=== PATIENT | male | born 2000 | race Caucasian/White ===

== ENCOUNTER → 2020-08-03 | Outpatient (CLI) | payer OTHER ==
[2020-08-05 17:13] LABS: CORONAVIRUS (COVID19) CSH-NRL Positive (Negative)
== END | disposition home or self-care (01) ==
LOC: LAB SHORT 17:27 → LAB EV 17:27
PROVIDERS: Physician Assistant
DX: J20.9 Acute bronchitis, unspecified (principal); Z20.828 Contact with and (suspected) exposure to other viral communicable diseases
CPT/HCPCS: U0003

== ENCOUNTER 2020-12-24 23:42 | Emergency (ER) | payer OTHER ==
[~2020-12-24] VITALS: Ht 177.8 cm; Wt 68.0 kg
[2020-12-25 00:09] LABS: Source, Urine Voided
[2020-12-25 00:13] LABS: Bilirubin, Urine Neg (Neg); Blood, Urine Neg (Neg); Glucose Qualitative, Urine Neg (Neg); Ketones, Urine Neg (Neg); Leukocyte Esterase, Urine 1+ (Neg); Nitrite, Urine Neg (Neg); Protein, Urine Neg (Neg); Urobilinogen, Urine NORM (Normal)
[2020-12-25 00:18] LABS: Appearance, Urine Clear (Clear); Color, Urine Yellow (P-Yellow)
[2020-12-25 00:20] LABS: Bacteria Not Seen /hpf; Red Blood Cells, Urine Not Seen /hpf (0-2); Squamous Epithelial Cells Not Seen /hpf (Few); White Blood Cells, Urine Rare /hpf (0-5)
[2020-12-25 00:35] LABS: BASOPHILS ABSOLUTE AUTO 0.04 K/mm3 (0.00-0.23); BASOPHILS PERCENT AUTO 0 % (0-2); EOSINOPHILS ABSOLUTE AUTO 0.07 K/mm3 (0.00-0.68); EOSINOPHILS PERCENT AUTO 1 % (0-6); Hematocrit 45.3 % (37.0-53.0); Hemoglobin 15.5 g/dL (13.5-17.5); IMMATURE GRAN ABSOLUTE AUTO 0.03 K/mm3 (0.00-0.10); IMMATURE GRAN PERCENT AUTO 0 % (0-1); LYMPHOCYTES ABSOLUTE AUTO 2.14 K/mm3 (0.84-5.20); LYMPHOCYTES PERCENT AUTO 22 % (21-46); MONOCYTES ABSOLUTE AUTO 0.62 K/mm3 (0.16-1.47); MONOCYTES PERCENT AUTO 6 % (4-13); Mean Corpuscular HGB 31.2 pg (26.0-34.0); Mean Corpuscular HGB Conc 34.2 g/dL (31.5-36.5); Mean Corpuscular Volume 91 fL (80-100); Mean Platelet Volume 10.1 fL (9.1-12.4); NEUTROPHILS ABSOLUTE AUTO 7.06 K/mm3 (1.96-9.15); NEUTROPHILS PERCENT AUTO 71 % (41-73); Platelet Count 166 K/mm3 (150-400); RDW Coefficient Variation 12.3 % (11.7-14.2); Red Blood Cell Count 4.97 M/mm3 (4.30-5.90); White Blood Cell Count 9.96 K/mm3 (4.00-11.30)
[2020-12-25 01:12] LABS: Alanine Aminotransfer (ALT/SGP 27 U/L (12-78); Albumin/Globulin Ratio 1.2 (0.8-1.8); Alk Phos 78 U/L (50-136); Anion Gap 5 mmol/L (6-16); Aspartate Aminotrans (AST/SGOT 26 U/L (12-37); Bilirubin, Total 0.5 mg/dL (0.1-1.0); Blood Urea Nitrogen 14 mg/dL (8-24); Bun/Creatinine Ratio 14.1 (12.0-20.0); CO2, Blood 29 mmol/L (21-32); CPK Creatine Kinase 116 U/L (39-308); Calcium, Blood 8.9 mg/dL (8.5-10.1); Chloride, Blood 104 mmol/L (98-108); Creatinine, Blood 0.99 mg/dL (0.60-1.20); Ethanol (Alcohol), Blood, Med <3 mg/dL; Globulin, Blood 3.3 g/dL (2.2-4.0); Glomerular Filtration Rate >60 (60-); Glucose, Blood 100 mg/dL (70-99); Potassium, Blood 3.8 mmol/L (3.5-5.5); Sodium, Blood 138 mmol/L (136-145); Total Protein, Blood 7.3 g/dL (6.4-8.2)
[2020-12-25 01:13] LABS: Creatine Kinase MB <1.0 ng/mL (0.0-3.6); Creatine Kinase MB Index Unable to Calculate (0.0-4.0)
[2020-12-25] MEDS ORDERED: IBU600 MG PO (01:23)
== END 2020-12-25 01:30 | disposition home or self-care (01) ==
LOC: ER 23:42
PROVIDERS: Emergency Medicine
DX: R10.9 Unspecified abdominal pain (principal); Z72.89 Other problems related to lifestyle
CPT/HCPCS: 36415; 80053; 81001; 82550; 82553; 85025; 96372; 99284-25; G0480; J1885

== ENCOUNTER 2021-05-10 22:19 | Emergency (ER) | payer OTHER ==
[~2021-05-10] VITALS: Ht 175.3 cm; Wt 68.0 kg
[~2021-05-10 22:19] MED LIST: IBU600 MG PO
== END 2021-05-11 05:16 | disposition home or self-care (01) ==
LOC: ER 22:19
DX: S90.01XA Contusion of right ankle, initial encounter (principal); Z87.891 Personal history of nicotine dependence; V48.4XXA Person boarding or alighting a car injured in noncollision transport accident, initial encounter; Y99.0 Civilian activity done for income or pay
CPT/HCPCS: 73610; 99283-25; A9270

== ENCOUNTER 2021-06-25 10:39 | Emergency (ER) | payer OTHER ==
[~2021-06-25] VITALS: Ht 175.3 cm; Wt 65.8 kg
[2021-06-25] MEDS ORDERED: HYDR1TAB94 PO (11:38)
== END 2021-06-25 11:45 | disposition home or self-care (01) ==
LOC: ER 10:39
DX: S62.314A Displaced fracture of base of fourth metacarpal bone, right hand, initial encounter for closed fracture (principal); Z87.891 Personal history of nicotine dependence; W19.XXXA Unspecified fall, initial encounter
CPT/HCPCS: 29125; 73130; 99283-25; A9270

== ENCOUNTER → 2021-12-16 | Outpatient (CLI) | payer OTHER ==
[~2021-12-16] MED LIST changes: +HYDR1TAB94 PO
[2021-12-16 11:29] LABS: BASOPHILS ABSOLUTE AUTO 0.07 K/mm3 (0.00-0.23); BASOPHILS PERCENT AUTO 0 % (0-2); EOSINOPHILS ABSOLUTE AUTO 0.04 K/mm3 (0.00-0.68); EOSINOPHILS PERCENT AUTO 0 % (0-6); Hematocrit 44.2 % (37.0-53.0); Hemoglobin 15.3 g/dL (13.5-17.5); IMMATURE GRAN ABSOLUTE AUTO 0.18 K/mm3 (0.00-0.10); IMMATURE GRAN PERCENT AUTO 1 % (0-1); LYMPHOCYTES ABSOLUTE AUTO 4.16 K/mm3 (0.84-5.20); LYMPHOCYTES PERCENT AUTO 18 % (21-46); MONOCYTES ABSOLUTE AUTO 0.91 K/mm3 (0.16-1.47); MONOCYTES PERCENT AUTO 4 % (4-13); Mean Corpuscular HGB Conc 34.6 g/dL (31.5-36.5); Mean Corpuscular Volume 90 fL (80-100); Mean Platelet Volume 10.1 fL (9.1-12.4); NEUTROPHILS ABSOLUTE AUTO 17.56 K/mm3 (1.96-9.15); NEUTROPHILS PERCENT AUTO 77 % (41-73); Platelet Count 247 K/mm3 (150-400); RDW Coefficient Variation 12.6 % (11.7-14.2); RDW Standard Deviation 41.4 fL (35.1-46.3); Red Blood Cell Count 4.94 M/mm3 (4.30-5.90); White Blood Cell Count 22.92 K/mm3 (4.00-11.30)
[2021-12-16 11:38] LABS: Alanine Aminotransfer (ALT/SGP 44 U/L (12-78); Albumin, Blood 4.9 g/dL (3.4-5.0); Albumin/Globulin Ratio 1.5 (0.8-1.8); Alk Phos 73 U/L (40-126); Anion Gap 23 mmol/L (6-16); Aspartate Aminotrans (AST/SGOT 39 U/L (12-37); Bilirubin, Total 0.7 mg/dL (0.1-1.0); Blood Urea Nitrogen 19 mg/dL (8-24); Bun/Creatinine Ratio 14.8 (12.0-20.0); CO2, Blood 17 mmol/L (21-32); Calcium, Blood 9.5 mg/dL (8.5-10.1); Chloride, Blood 102 mmol/L (98-108); Creatinine, Blood 1.28 mg/dL (0.60-1.20); Globulin, Blood 3.2 g/dL (2.2-4.0); Glomerular Filtration Rate >60 (60-); Glucose, Blood 95 mg/dL (70-99); Potassium, Blood 2.7 mmol/L (3.5-5.5); Sodium, Blood 142 mmol/L (136-145); Total Protein, Blood 8.1 g/dL (6.4-8.2)
== END ==
LOC: LAB SHORT 11:23 → LAB EV 11:23
PROVIDERS: Physician Assistant
DX: F10.929 Alcohol use, unspecified with intoxication, unspecified (principal); R11.2 Nausea with vomiting, unspecified
CPT/HCPCS: 80053; 85025; G0480

== ENCOUNTER 2022-09-01 08:53 | Emergency (ER) | payer OTHER ==
[~2022-09-01] VITALS: Ht 180.3 cm; Wt 62.1 kg
[2022-09-01 10:32] LABS: Influenza B, PCR NEGATIVE (NEGATIVE); Resp Syncytial Virus, PCR NEGATIVE (NEGATIVE); SARS-Cov-2 (COVID-19) PCR, MMC NEGATIVE (NEGATIVE)
[2022-09-01 10:35] LABS: Influenza A, PCR POSITIVE (NEGATIVE)
== END 2022-09-01 12:11 | disposition home or self-care (01) ==
LOC: ER 08:53
PROVIDERS: Student in an Organized Health Care Education/Training Program
DX: J10.1 Influenza due to other identified influenza virus with other respiratory manifestations (principal); Z20.822 Contact with and (suspected) exposure to COVID-19; Z87.891 Personal history of nicotine dependence
CPT/HCPCS: 0241U; A9270

== ENCOUNTER 2023-10-19 12:18 | Emergency (ER) | payer OTHER ==
[~2023-10-19] VITALS: Ht 177.8 cm; Wt 63.5 kg
[2023-10-19 12:42] VITALS: BP 100/72
[2023-10-19 13:12] LABS: BASOPHILS ABSOLUTE AUTO 0.06 K/mm3 (0.00-0.23); BASOPHILS PERCENT AUTO 1 % (0-2); EOSINOPHILS PERCENT AUTO 0 % (0-6); Hematocrit 42.9 % (37.0-53.0); Hemoglobin 15.2 g/dL (13.5-17.5); IMMATURE GRAN ABSOLUTE AUTO 0.05 K/mm3 (0.00-0.10); IMMATURE GRAN PERCENT AUTO 0 % (0-1); LYMPHOCYTES ABSOLUTE AUTO 2.17 K/mm3 (0.84-5.20); LYMPHOCYTES PERCENT AUTO 17 % (21-46); MONOCYTES ABSOLUTE AUTO 0.61 K/mm3 (0.16-1.47); MONOCYTES PERCENT AUTO 5 % (4-13); Mean Corpuscular HGB 30.8 pg (26.0-34.0); Mean Corpuscular HGB Conc 35.4 g/dL (31.5-36.5); Mean Corpuscular Volume 87 fL (80-100); Mean Platelet Volume 9.5 fL (9.1-12.4); NEUTROPHILS ABSOLUTE AUTO 10.17 K/mm3 (1.96-9.15); NEUTROPHILS PERCENT AUTO 78 % (41-73); Platelet Count 210 K/mm3 (150-400); RDW Standard Deviation 38.6 fL (35.1-46.3); Red Blood Cell Count 4.94 M/mm3 (4.30-5.90); White Blood Cell Count 13.06 K/mm3 (4.00-11.30)
[2023-10-19 13:40] LABS: Albumin, Blood 4.6 g/dL (3.4-5.0); Albumin/Globulin Ratio 1.4 (0.8-1.8); Bilirubin, Total 0.6 mg/dL (0.1-1.0); Bun/Creatinine Ratio 20.3 (12.0-20.0); Calcium, Blood 9.6 mg/dL (8.5-10.1); Creatinine, Blood 0.89 mg/dL (0.60-1.20); Globulin, Blood 3.3 g/dL (2.2-4.0); Potassium, Blood 3.8 mmol/L (3.5-5.5); Total Protein, Blood 7.9 g/dL (6.4-8.2)
[2023-10-19] MEDS ORDERED: ONDA4ODT MM (14:44)
== END 2023-10-19 15:15 | disposition home or self-care (01) ==
LOC: ER 12:18
PROVIDERS: Student in an Organized Health Care Education/Training Program
DX: F10.99 Alcohol use, unspecified with unspecified alcohol-induced disorder (principal); Z87.891 Personal history of nicotine dependence
CPT/HCPCS: 80053; 83690; 85025; 96361; 96374; 99284-25; J2405; J7030

== ENCOUNTER 2024-01-09 10:17 | Emergency (ER) | payer OTHER ==
[~2024-01-09] VITALS: Ht 177.8 cm; Wt 68.0 kg
[~2024-01-09 10:17] MED LIST changes: +ONDA4ODT MM
[2024-01-09 10:26] VITALS: BP 139/73
[2024-01-09] MEDS ORDERED: DOXY100 PO ×2 (10:36→10:56)
[2024-01-09] MEDS ORDERED: ONDA4ODT MM (10:56)
== END 2024-01-09 10:40 | disposition home or self-care (01) ==
LOC: ER 10:17
DX: Z20.2 Contact with and (suspected) exposure to infections with a predominantly sexual mode of transmission (principal); R10.30 Lower abdominal pain, unspecified; Z87.891 Personal history of nicotine dependence
CPT/HCPCS: 99282

== ENCOUNTER 2024-02-08 09:20 | Emergency (ER) | payer OTHER ==
[~2024-02-08] VITALS: Ht 177.8 cm; Wt 64.9 kg
[~2024-02-08 09:20] MED LIST changes: +DOXY100 PO
[2024-02-08 09:58] VITALS: BP 131/91
[2024-02-08] MEDS ORDERED: Acetaminophen 500 MG Tab PO ONE (10:20)
[2024-02-08] MEDS ORDERED: Ketorolac Tromethamine 30mg Vial IM ONE (10:20)
== END 2024-02-08 12:20 | disposition home or self-care (01) ==
LOC: ER 09:20
DX: M25.561 Pain in right knee (principal); Z87.891 Personal history of nicotine dependence
CPT/HCPCS: 73562-RT; A9270; J1885

== ENCOUNTER 2024-06-19 08:46 | Emergency (ER) | payer OTHER ==
[~2024-06-19] VITALS: Ht 175.3 cm; Wt 72.6 kg
[2024-06-19 09:16] LABS: Source, Urine Clean Catch
[2024-06-19 09:28] LABS: Appearance, Urine Clear (Clear); Bilirubin, Urine Neg (Neg); Blood, Urine Neg (Neg); Color, Urine Yellow (P-Yellow); Glucose Qualitative, Urine Neg (Neg); Ketones, Urine Neg (Neg); Leukocyte Esterase, Urine Neg (Neg); Nitrite, Urine Neg (Neg); Protein, Urine Neg (Neg); Specific Gravity, Urine 1.015 (1.003-1.022); Urobilinogen, Urine NORM (Normal); pH, Urine 6.5 (5.0-8.0)
[2024-06-19 11:35] VITALS: BP 104/62
[2024-06-19 13:09] LABS: Chlamydia Trachomatis Urine NOT DETECTED (NOT DETECT); Neisseria Gonorrhoea Urine NOT DETECTED (NOT DETECT)
== END 2024-06-19 11:36 | disposition home or self-care (01) ==
LOC: ER 08:46
PROVIDERS: Physician Assistant
DX: N32.89 Other specified disorders of bladder (principal); Z87.891 Personal history of nicotine dependence
CPT/HCPCS: 81003; 87491; 87591; 99284

== ENCOUNTER 2024-07-25 19:03 | Emergency (ER) | payer OTHER ==
[~2024-07-25] VITALS: Ht 177.8 cm; Wt 69.0 kg
[2024-07-25 19:16] VITALS: BP 132/87
[2024-07-25 19:44] LABS: Source, Urine Voided
[2024-07-25 19:46] LABS: Appearance, Urine Clear (Clear); Bilirubin, Urine Neg (Neg); Blood, Urine Neg (Neg); Color, Urine Yellow (P-Yellow); Glucose Qualitative, Urine Neg (Neg); Ketones, Urine Neg (Neg); Leukocyte Esterase, Urine Neg (Neg); Nitrite, Urine Neg (Neg); Protein, Urine Neg (Neg); Urobilinogen, Urine NORM (Normal)
[2024-07-25 19:57] LABS: BASOPHILS ABSOLUTE AUTO 0.04 K/mm3 (0.00-0.23); BASOPHILS PERCENT AUTO 0 % (0-2); EOSINOPHILS ABSOLUTE AUTO 0.13 K/mm3 (0.00-0.68); EOSINOPHILS PERCENT AUTO 1 % (0-6); Hematocrit 41.4 % (37.0-53.0); Hemoglobin 14.5 g/dL (13.5-17.5); IMMATURE GRAN ABSOLUTE AUTO 0.03 K/mm3 (0.00-0.10); IMMATURE GRAN PERCENT AUTO 0 % (0-1); LYMPHOCYTES ABSOLUTE AUTO 2.98 K/mm3 (0.84-5.20); LYMPHOCYTES PERCENT AUTO 29 % (21-46); MONOCYTES ABSOLUTE AUTO 0.78 K/mm3 (0.16-1.47); MONOCYTES PERCENT AUTO 8 % (4-13); Mean Corpuscular HGB 30.9 pg (26.0-34.0); Mean Corpuscular Volume 88 fL (80-100); Mean Platelet Volume 9.6 fL (9.1-12.4); NEUTROPHILS ABSOLUTE AUTO 6.25 K/mm3 (1.96-9.15); NEUTROPHILS PERCENT AUTO 61 % (41-73); Platelet Count 170 K/mm3 (150-400); RDW Coefficient Variation 12.1 % (11.7-14.2); RDW Standard Deviation 38.9 fL (35.1-46.3); Red Blood Cell Count 4.69 M/mm3 (4.30-5.90); White Blood Cell Count 10.21 K/mm3 (4.00-11.30)
[2024-07-25 20:24] LABS: Albumin, Blood 4.1 g/dL (3.4-5.0); Albumin/Globulin Ratio 1.3 (0.8-1.8); Bilirubin, Total 0.5 mg/dL (0.1-1.0); Calcium, Blood 9.1 mg/dL (8.5-10.1); Creatinine, Blood 0.88 mg/dL (0.60-1.20); Globulin, Blood 3.1 g/dL (2.2-4.0); Potassium, Blood 3.7 mmol/L (3.5-5.5); Total Protein, Blood 7.2 g/dL (6.4-8.2)
[2024-07-25] MEDS ORDERED: OMEP20ER PO (23:30)
[2024-07-25] MEDS ORDERED: DOCU100 PO (23:30)
[2024-07-25] MEDS ORDERED: TAMS.4ER PO (23:30)
== END 2024-07-25 23:49 | disposition home or self-care (01) ==
LOC: ER 19:03
PROVIDERS: Student in an Organized Health Care Education/Training Program
DX: K62.5 Hemorrhage of anus and rectum (principal); Z87.891 Personal history of nicotine dependence
CPT/HCPCS: 80053; 81003; 83690; 85025; 99283

== ENCOUNTER → 2024-07-29 | Outpatient (CLI) | payer OTHER ==
[~2024-07-29] MED LIST changes: +DOCU100 PO; +OMEP20ER PO; +TAMS.4ER PO
== END ==
LOC: LAB 07:15 → LAB SHORT 07:15
DX: K92.1 Melena (principal); R10.30 Lower abdominal pain, unspecified
CPT/HCPCS: 87015; 87045; 87046; 87205; 87899

== ENCOUNTER 2024-11-28 09:30 | Emergency (ER) | payer OTHER ==
[~2024-11-28] VITALS: Ht 175.3 cm; Wt 79.4 kg
[2024-11-28 10:05] LABS: BASOPHILS ABSOLUTE AUTO 0.02 K/mm3 (0.00-0.23); BASOPHILS PERCENT AUTO 0 % (0-2); EOSINOPHILS ABSOLUTE AUTO 0.05 K/mm3 (0.00-0.68); EOSINOPHILS PERCENT AUTO 1 % (0-6); IMMATURE GRAN PERCENT AUTO 0 % (0-1); LYMPHOCYTES ABSOLUTE AUTO 1.77 K/mm3 (0.84-5.20); LYMPHOCYTES PERCENT AUTO 37 % (21-46); MONOCYTES ABSOLUTE AUTO 0.37 K/mm3 (0.16-1.47); MONOCYTES PERCENT AUTO 8 % (4-13); Mean Corpuscular HGB 30.7 pg (26.0-34.0); Mean Corpuscular HGB Conc 34.1 g/dL (31.5-36.5); Mean Corpuscular Volume 90 fL (80-100); Mean Platelet Volume 9.3 fL (9.1-12.4); NEUTROPHILS ABSOLUTE AUTO 2.54 K/mm3 (1.96-9.15); NEUTROPHILS PERCENT AUTO 53 % (41-73); Platelet Count 174 K/mm3 (150-400); RDW Coefficient Variation 12.4 % (11.7-14.2); RDW Standard Deviation 41.1 fL (35.1-46.3); Red Blood Cell Count 4.89 M/mm3 (4.30-5.90); White Blood Cell Count 4.75 K/mm3 (4.00-11.30)
[2024-11-28 10:26] LABS: Magnesium, Blood 1.9 mg/dL (1.6-2.4)
[2024-11-28 10:28] LABS: Albumin, Blood 4.1 g/dL (3.4-5.0); Albumin/Globulin Ratio 1.3 (0.8-1.8); Bilirubin, Total 0.3 mg/dL (0.1-1.0); Bun/Creatinine Ratio 16.4 (12.0-20.0); Calcium, Blood 8.4 mg/dL (8.5-10.1); Creatinine, Blood 0.85 mg/dL (0.60-1.20); Globulin, Blood 3.1 g/dL (2.2-4.0); Potassium, Blood 3.7 mmol/L (3.5-5.5); Thyroid Stimulating Hormone 0.474 uIU/mL (0.360-4.800); Total Protein, Blood 7.2 g/dL (6.4-8.2)
[2024-11-28 10:41] LABS: CORONAVIRUS COVID-19 AG Negative (NEGATIVE); INFLUENZA A AG Negative (NEGATIVE); INFLUENZA B AG Negative (NEGATIVE)
[2024-11-28 11:00] VITALS: BP 112/67
== END 2024-11-28 11:15 | disposition home or self-care (01) ==
LOC: ER 09:30
PROVIDERS: Emergency Medicine
DX: R00.2 Palpitations (principal); R07.9 Chest pain, unspecified; F10.90 Alcohol use, unspecified, uncomplicated; F17.200 Nicotine dependence, unspecified, uncomplicated
CPT/HCPCS: 71046; 80053; 83735; 84443; 84484; 85025; 87428-QW; 93005; 93010; 99285-25